=== PATIENT | male | born 1995 | race Caucasian/White ===

== ENCOUNTER 2021-10-26 10:37 | Emergency (ER) | payer MEDICAID ==
[~2021-10-26] VITALS: Ht 177.8 cm; Wt 65.9 kg
[2021-10-26 10:45] VITALS: BP 128/76
[2021-10-26 11:06] LABS: CLARITY,URINE CLEAR (Clear); GLUCOSE, URINE NEGATIVE (Neg); KETONES,URINE NEGATIVE (Neg); LEUKOCYTE ESTERASE ,URINE NEGATIVE (Neg); NITRITES, URINE NEGATIVE (Neg); OCCULT BLOOD,URINE NEGATIVE (Neg); PROTEIN,URINE NEGATIVE (Neg); UA COLLECTION TYPE URINAL; UROBILINOGEN,URINE 0.2 E.U/dL (0.2-1.0)
[2021-10-26 11:07] LABS: COLOR,URINE STRAW (Yellow)
== END 2021-10-26 13:26 | disposition home or self-care (01) ==
LOC: ER 10:38
DX: G56.02 Carpal tunnel syndrome, left upper limb (principal); M79.642 Pain in left hand
CPT/HCPCS: 73100; 73110; 73130; 81003; 99284

== ENCOUNTER 2021-10-30 16:28 | Emergency (ER) | payer MEDICAID ==
[~2021-10-30] VITALS: Ht 177.8 cm; Wt 68.2 kg
[2021-10-30 16:36] VITALS: BP 128/89
[2021-10-30 17:03] LABS: BASOPHILS # (AUTO) 0.1 X10'3 (0-0.2); BASOPHILS % (AUTO) 0.8 % (0-1); EOSINOPHILS # (AUTO) 0.2 X10'3 (0-0.9); EOSINOPHILS % (AUTO) 2.7 % (0-6); HEMATOCRIT 37.6 % (42.0-52.0); HEMOGLOBIN 12.2 g/dl (14.0-17.9); LYMPHOCYTES # (AUTO) 1.7 X10'3 (1.1-4.8); LYMPHOCYTES % (AUTO) 28.9 % (21-51); MEAN CORPUSCULAR HEMOGLOBIN 27.8 PG (27.0-31.0); MEAN CORPUSCULAR HGB CONC 32.3 g/dL (33.0-36.5); MEAN PLATELET VOLUME 6.3 FL (7.4-10.4); MONOCYTES # (AUTO) 0.7 X10'3 (0-0.9); NEUTROPHILS # (AUTO) 3.3 X10'3 (1.8-7.7); NEUTROPHILS % (AUTO) 55.6 % (42-75); PLATELET COUNT 164 X10'3 (140-440); RED BLOOD COUNT 4.37 X10'6 (4.70-6.10); RED CELL DISTRIBUTION WIDTH 20.3 % (11.5-14.5)
[2021-10-30 17:23] LABS: ALANINE AMINOTRANSFERASE 22 U/L (12-78); ALBUMIN/GLOBULIN RATIO 1.1 (1.1-1.5); ALKALINE PHOSPHATASE 48 IU/L (46-116); ANION GAP 7 (8-16); ASPARTATE AMINO TRANSFERASE 23 U/L (10-37); BILIRUBIN,TOTAL 0.1 MG/DL (0.1-1.0); BLOOD UREA NITROGEN 21 MG/DL (7-18); CALCIUM 8.5 MG/DL (8.5-10.1); CHLORIDE 101 MMOL/L (99-107); GLUCOSE 98 MG/DL (70-104); LIPASE 132 U/L (73-393); POTASSIUM 4.4 MMOL/L (3.5-5.1); SODIUM 139 MMOL/L (135-145); TOTAL CARBON DIOXIDE 30.6 MMOL/L (24-32); TOTAL PROTEIN 7.6 G/DL (6.4-8.2); eGFR 89 ML/MIN
[2021-10-30 17:46] LABS: CLARITY,URINE CLEAR (Clear); GLUCOSE, URINE NEGATIVE (Neg); KETONES,URINE NEGATIVE (Neg); LEUKOCYTE ESTERASE ,URINE TRACE (Neg); NITRITES, URINE NEGATIVE (Neg); OCCULT BLOOD,URINE NEGATIVE (Neg); PROTEIN,URINE NEGATIVE (Neg); UROBILINOGEN,URINE 0.2 E.U/dL (0.2-1.0)
[2021-10-30 17:52] LABS: COLOR,URINE STRAW (Yellow); UA COLLECTION TYPE VOIDED
[2021-10-30 17:53] LABS: BACTERIA,URINE FEW /HPF (Neg); RBC,URINE 0-2 /HPF (0-2); SQUAMOUS EPITHELIAL CELL,UR FEW /LPF (FEW); WBC,URINE 0-4 /HPF (0-4)
[2021-10-30 17:58] LABS: ANISOCYTOSIS 3+; PLATELET ESTIMATE NORMAL
[2021-10-30 18:10] LABS: ELLIPTOCYTES FEW; SCHISTOCYTES FEW
== END 2021-10-30 23:38 | disposition left against medical advice (07) ==
LOC: ER 16:29
DX: R10.9 Unspecified abdominal pain (principal); Z53.21 Procedure and treatment not carried out due to patient leaving prior to being seen by health care provider
CPT/HCPCS: 36415; 80053; 81001; 83690; 85008; 85025; 87088

== ENCOUNTER 2022-01-22 15:35 | Emergency (ER) | payer MEDICAID ==
[~2022-01-22] VITALS: Ht 177.8 cm; Wt 65.9 kg
[2022-01-22 16:51] VITALS: BP 128/68
== END 2022-01-22 16:52 | disposition home or self-care (01) ==
LOC: ER 15:35
DX: M79.675 Pain in left toe(s) (principal)
CPT/HCPCS: 73630; 99283

== ENCOUNTER 2022-02-18 20:47 | Emergency (ER) | payer MEDICAID ==
[~2022-02-18] VITALS: Ht 177.8 cm; Wt 73.0 kg
[2022-02-18 20:55] VITALS: BP 145/95
[2022-02-18] MEDS ORDERED: ibuprofen tablet 400 MG TABLET PO ONE (21:30)
[2022-02-18] MEDS ORDERED: acetaminophen 325mg tablet PO ONE (21:30)
[2022-02-18] MEDS ORDERED: acetaminophen 325mg/10.15ml oral unit dose solution PO ONE (21:50)
[2022-02-18] MEDS ORDERED: ibuprofen 100 MG/5 ML oral susp PO ONE (21:50)
[2022-02-18 22:05] LABS: CLARITY,URINE CLEAR (Clear); GLUCOSE, URINE NEGATIVE (Neg); KETONES,URINE NEGATIVE (Neg); LEUKOCYTE ESTERASE ,URINE NEGATIVE (Neg); NITRITES, URINE NEGATIVE (Neg); OCCULT BLOOD,URINE NEGATIVE (Neg); PH,URINE 7.5 (4.8-8.0); PROTEIN,URINE NEGATIVE (Neg); UROBILINOGEN,URINE 0.2 E.U/dL (0.2-1.0)
[2022-02-18 22:11] LABS: COLOR,URINE STRAW (Yellow); UA COLLECTION TYPE VOIDED
== END 2022-02-18 23:04 | disposition home or self-care (01) ==
LOC: ER 20:49
DX: I86.1 Scrotal varices (principal)
CPT/HCPCS: 76870; 81003; 93976; 99284

== ENCOUNTER 2022-03-03 16:46 | Emergency (ER) | payer MEDICAID ==
[~2022-03-03] VITALS: Ht 177.8 cm; Wt 68.6 kg
[2022-03-03 16:59] VITALS: BP 125/73
[2022-03-03] MEDS ORDERED: CEPH250T PO (17:25)
== END 2022-03-03 17:37 | disposition home or self-care (01) ==
LOC: ER 16:46
DX: L60.0 Ingrowing nail (principal)
CPT/HCPCS: 99283

== ENCOUNTER 2022-04-09 13:16 | Emergency (ER) | payer MEDICAID ==
[~2022-04-09] VITALS: Ht 182.9 cm; Wt 75.0 kg
[2022-04-09] MEDS ORDERED: LORazepam 1 MG tablet PO ONE (14:15)
[2022-04-09] MEDS ORDERED: LIDOCAINE 2%/EPI 1:100,000 inj. Multi-dose 20 ML VIAL SQ ONE (14:16)
[2022-04-09 14:32] LABS: BASOPHILS % (AUTO) 0.8 % (0-1); EOSINOPHILS # (AUTO) 0.2 X10'3 (0-0.9); EOSINOPHILS % (AUTO) 3.8 % (0-6); HEMATOCRIT 42.6 % (42.0-52.0); HEMOGLOBIN 14.3 g/dl (14.0-17.9); LYMPHOCYTES # (AUTO) 1.3 X10'3 (1.1-4.8); LYMPHOCYTES % (AUTO) 22.4 % (21-51); MEAN CORPUSCULAR HEMOGLOBIN 33.2 PG (27.0-31.0); MEAN CORPUSCULAR HGB CONC 33.4 g/dL (33.0-36.5); MEAN CORPUSCULAR VOLUME 99.2 FL (78-98); MONOCYTES # (AUTO) 0.7 X10'3 (0-0.9); MONOCYTES % (AUTO) 11.2 % (2-12); NEUTROPHILS # (AUTO) 3.6 X10'3 (1.8-7.7); NEUTROPHILS % (AUTO) 61.8 % (42-75); PLATELET COUNT 157 X10'3 (140-440); RED CELL DISTRIBUTION WIDTH 15.4 % (11.5-14.5); WHITE BLOOD COUNT 5.9 X10'3 (4.5-11.0)
[2022-04-09 15:00] LABS: ALANINE AMINOTRANSFERASE 31 U/L (12-78); ALBUMIN/GLOBULIN RATIO 1.2 (1.1-1.5); ALKALINE PHOSPHATASE 56 IU/L (46-116); ANION GAP 3 (8-16); ASPARTATE AMINO TRANSFERASE 20 U/L (10-37); BILIRUBIN,TOTAL 0.3 MG/DL (0.1-1.0); CALCIUM 8.9 MG/DL (8.5-10.1); CHLORIDE 107 MMOL/L (99-107); GLUCOSE 110 MG/DL (70-104); SODIUM 142 MMOL/L (135-145); TOTAL CARBON DIOXIDE 31.6 MMOL/L (24-32); TOTAL PROTEIN 7.4 G/DL (6.4-8.2)
[2022-04-09 15:01] LABS: BLOOD UREA NITROGEN 8 MG/DL (7-18); CREATININE 0.89 MG/DL (0.60-1.10); eGFR > 90 ML/MIN
[2022-04-09 16:18] LABS: CLARITY,URINE CLEAR (Clear); COLOR,URINE STRAW (Yellow); GLUCOSE, URINE NEGATIVE (Neg); KETONES,URINE NEGATIVE (Neg); LEUKOCYTE ESTERASE ,URINE NEGATIVE (Neg); NITRITES, URINE NEGATIVE (Neg); OCCULT BLOOD,URINE NEGATIVE (Neg); PROTEIN,URINE NEGATIVE (Neg); UROBILINOGEN,URINE 0.2 E.U/dL (0.2-1.0)
[2022-04-09 16:23] LABS: UA COLLECTION TYPE CLN CATCH MIDSTREAM
[2022-04-09 16:45] VITALS: BP 109/82
== END 2022-04-09 17:57 | disposition home or self-care (01) ==
LOC: ER 13:16
DX: L60.0 Ingrowing nail (principal)
CPT/HCPCS: 11730; 36415; 80053; 81003; 85025; 99284; A6222

== ENCOUNTER 2022-04-15 11:58 | Emergency (ER) | payer MEDICAID ==
[~2022-04-15] VITALS: Ht 177.8 cm; Wt 65.0 kg
[2022-04-15 12:15] VITALS: BP 127/91
== END 2022-04-15 12:17 | disposition left against medical advice (07) ==
LOC: ER 12:00
DX: R30.0 Dysuria (principal); Z53.21 Procedure and treatment not carried out due to patient leaving prior to being seen by health care provider

== ENCOUNTER 2022-04-15 15:54 | Emergency (ER) | payer MEDICAID ==
[~2022-04-15] VITALS: Ht 177.8 cm; Wt 74.0 kg
[2022-04-15 15:56] VITALS: BP 120/87
== END 2022-04-15 18:12 | disposition left against medical advice (07) ==
LOC: ER 15:55
DX: N23 Unspecified renal colic (principal); Z53.21 Procedure and treatment not carried out due to patient leaving prior to being seen by health care provider

== ENCOUNTER 2023-09-04 09:10 | Emergency (ER) | payer MEDICAID ==
[~2023-09-04] VITALS: Ht 177.8 cm; Wt 68.0 kg
[2023-09-04 09:36] VITALS: BP 132/94; PULSE 95; RESP 18; TEMP 98.9; O2SAT 100
== END 2023-09-04 10:21 | disposition left against medical advice (07) ==
LOC: ER 09:11
DX: R30.9 Painful micturition, unspecified (principal); R11.2 Nausea with vomiting, unspecified; Z53.21 Procedure and treatment not carried out due to patient leaving prior to being seen by health care provider

== ENCOUNTER 2024-03-05 09:36 | Emergency (ER) | payer MEDICAID ==
[~2024-03-05] VITALS: Ht 177.8 cm; Wt 44.8 kg
[2024-03-05 09:41] VITALS: BP 127/98; PULSE 94; RESP 16; TEMP 97.6; O2SAT 100
== END 2024-03-05 11:39 | disposition left against medical advice (07) ==
LOC: ER 09:36
DX: H92.01 Otalgia, right ear (principal); Z53.21 Procedure and treatment not carried out due to patient leaving prior to being seen by health care provider; Z88.2 Allergy status to sulfonamides

== ENCOUNTER 2024-03-05 16:49 | Emergency (ER) | payer MEDICAID | END 2024-03-05 17:28 | disposition left against medical advice (07) | LOC: ER 16:50 | DX: M79.606 Pain in leg, unspecified (principal); R07.89 Other chest pain; M54.89 Other dorsalgia; Z53.21 Procedure and treatment not carried out due to patient leaving prior to being seen by health care provider; Z88.2 Allergy status to sulfonamides ==